=== PATIENT | female | born 1975 | race Caucasian/White ===

== ENCOUNTER 2017-11-09 08:05 | Observation (INO) | payer OTHER, SELFPAY ==
[2017-11-09] VITALS (12 sets, daily range): BP systolic 120–165; BP diastolic 74–109; PULSE 68–105; RESP 11–20; TEMP 36.4–36.8; O2SAT 96–100; BMI 29.0; BMI 27.8; BMI 27.9
--- NOTE | 2017-11-09 08:17 | EKG12_ITS ---
Test Reason : CHEST PAIN Blood Pressure : / mmHG Vent. Rate : 105 BPM Atrial Rate : 105 BPM P-R Int : 130 ms QRS Dur : 080 ms QT Int : 332 ms P-R-T Axes : 052 053 030 degrees QTc Int : 438 ms Sinus tachycardia Otherwise normal ECG Confirmed by HARRIET HARDEN MD ([id number]), city editor DIAMOND MEDINA ([id number] on 11/10/2017 11:34:14 AM Referred By: ZEE Confirmed By:HARRIET HADREN MD
--- NOTE | 2017-11-09 08:17 | RAD_ITS ---
STUDY: X-RAY CHEST REASON FOR EXAM: Female, 42 years old. Sudden onset of chest pain and chest heaviness. TECHNIQUE: Single AP portable view of the chest. COMPARISON: None. FINDINGS: EKG electrodes are seen. The lungs are clear and expanded. There is no demonstrated pleural abnormality. Normal size heart. Normal mediastinum and christine. Normal visualized pulmonary arteries. Normal visualized aortic arch and descending thoracic aorta. Normal visualized thoracic spine. Normal visualized ribs, clavicles, and shoulders. There is no demonstrated abnormality of the visualized soft tissue structures of the upper abdomen. RAD/Chest 1 View (Portable) IMPRESSION: Normal x-ray examination of the chest. Electronically Signed: Kobe Cedillo MD at 8:36 EDT Tel [phone], Service support ,
--- NOTE | 2017-11-09 08:22 | ED.VISSUMM ---
- ER Visit Summary Date of Service: 11/09/17 Chief Complaint: Chest pain History of Present Illness: The patient is a 42 F presenting with chest pain. States she started to not feel well around 2 AM. She had lightheadedness and dizziness. She states around 5 AM she started having chest pressure and diaphoresis. She was at work at the time. She states when she tried to walk around the chest pressure worsened and she became short of breath. She is a smoker, no other coronary artery disease risk factors. No PE/DVT risk factors. Physical Examination: Vitals are stable. Patient is afebrile. Alert no acute distress. HEENT exam is unremarkable. Neck is supple. Lungs are clear and equal bilaterally. Heart is regular and tachycardic Abdomen is soft nontender nondistended. Extremities are unremarkable. Skin is warm and dry. Remainder of exam is unremarkable. Emergency Department Course and Treatment: EKG is sinus tachycardia rate of 105 with no acute ischemic changes. She was given aspirin on arrival. She was given morphine, Zofran IV. Chest x-ray shows no acute process. CBC, chemistries unremarkable. Troponin is negative. D-dimer negative. On reevaluation, she is chest pain-free. Discussed with the hospitalist for observation. Disposition: Observation Impression: Chest pain This note was generated with [employer] dictation software. It may contain incorrect words, spelling, and punctuation that were not noted in review of the chart prior to signing ED Disposition - Plan for ED Patient: Chief Complaint: Chest Pain
[2017-11-09] MEDS: Aspirin 81 MG TAB.CHEW 324 MG PO (08:38)
[2017-11-09] MEDS: Morphine 4 MG/ML Syringe IV (08:38)
[2017-11-09] MEDS: Ondansetron 4 MG/2 ML Vial IV (08:38)
[2017-11-09 09:06] LABS: Absolute Lymphocyte Count 3.27 X10^3/ul (0.83-4.51); Absolute Neutrophil Count 5.4 X10^3/uL (2.0-7.7); Basophil# 0.04 X10^3/uL; Basophil% 0.4 % (0-1); Eosinophil# 0.29 X10^3/uL; Eosinophils% 2.9 % (0-5); Hematocrit 47.4 % (37-47); Lymphocyte # 3.27 X10^3/ul (4.0); Lymphocyte % 33.1 % (19-41); Mean Corp Hgb Conc 33.8 g/gl (32-36); Mean Corpuscular Hgb 30.8 pg (27.0-32.0); Mean Corpuscular Volume 91.3 fL (81-99); Monocyte# 0.79 X10^3/uL; Neutrophil # 5.41 X10^3/uL (2.7-7.7); Neutrophil % 54.9 % (47-70); POSITIVE COUNT NO; POSITIVE DIFFERENTIAL NO; POSITIVE MORPHOLOGY NO; Platelet Count 265 K/mm3 (150-450); RBC Distribution Width CV 13.1 % (11.6-14.6); RBC Distribution Width SD 43.5 fl (35.1-43.9); Red Blood Count 5.19 M/mm3 (4.2-5.4); White Blood Count 9.9 K/mm3 (4.4-11.0)
[2017-11-09 09:21] LABS: Anion Gap 11 (5-15); BUN 12 mg/dL (7-18); BUN/Creat Ratio 14.7 RATIO (10-20); Calcium,Total 9.2 mg/dL (8.5-10.1); Chloride 105 mmol/L (98-107); Creatinine, Serum 0.82 mg/dL (0.55-1.02); EST Glomerular Filtration Rate 81 mL/min (>60); Est Glom Filt Rate - Afr Amer 99 mL/min (>60); Estimated Creatinine Clearance 89.24 ml/min; Glucose 119 mg/dL (74-106); Potassium 3.7 mmol/L (3.5-5.1); Sodium Level 142 mmol/L (136-145)
[2017-11-09 09:23] LABS: D-Dimer Quantitative (DVT/PE) 0.34 FEU/ug/m (0.27-0.49)
--- NOTE | 2017-11-09 10:31 | NURSING ---
Pepper notified patient may transfer to PCU.
--- NOTE | 2017-11-09 10:35 | PCM.HP.STD ---
History of Present Illness Date of Admission: 11/09/17 Chief Complaint: Chest pain. The patient is a 42 year old F with no significant past medical history presented to the emergency room because of chest pain. This morning around 1:30 AM, patient went to work, started feeling nauseous and sweaty while standing and shortly after, she started having left-sided chest pain, described as chest discomfort, mild, 3-4 out of 10 in severity, associated with shortness of breath and palpitation as well as nausea and without aggravating or relieving factors. She denied syncope or presyncope. She mentioned that she works for [employer] and her job is very stressful and she thinks it is all because of stress and anxiety. She is a smoker. She denied personal history of hypertension, diabetes, hyperlipidemia or heart disease. No family history of premature CAD. Upon arrival to ER, patient was tachycardic, blood pressure slightly elevated, was afebrile and pulse ox was normal on room air. Her routine blood work was unremarkable. EKG revealed sinus tachycardia, otherwise normal. D-dimer is negative. Troponin is negative. Chest x-ray showed no acute findings. She is being admitted for chest pain for evaluation. 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 Denies: Edema, Heaviness, Light Headedness, Paroxysmal Noc. Dyspnea, Syncope Respiratory: Reports: Shortness of Breath. Denies: Cough, Pleuritic Pain, Sputum production, Wheezing Gastrointestinal: Reports: Nausea. Denies: Abdominal Pain, Constipation, Diarrhea, Vomiting Genitourinary: Denies: Dysuria, Frequency, Hematuria Musculoskeletal: Denies: Arm Pain, Back Pain, Foot Pain Skin: Denies: Dryness, Rash Neurological: Denies: Balance problems, Change in Speech, Slurred speech, Confusion, Headaches, Incoordination, Numbness, Tingling Psychiatric: Denies: Anxiety, Depression Endocrine: Denies: Change in Body Habitus, Polydipsia VTE Information - Inpt Only VTE Present on Admission: No VTE Mechan Device Prophylaxis: None VTE Pharm Prophylaxis ordered?: No - Physical Exam General: Alert, Oriented x3, Cooperative, No apparent distress HEENT: Atraumatic, PERRLA, EOMI, Normocephalic Oral: Moist Mucosa, No Gingival or Mucosal Lesions/ Ulcerations Neck: Supple, No JVD, Negative Carotid Bruits, Trachea Midline, Thyroid Normal Size and Texture Lungs: Clear to auscultation, Normal air movement, No rhonchi, No wheeze, No rales Cardiovascular: Regular rate, Regular Rhythm, Normal S1, Normal S2, No murmurs, PMI Normal Abdomen: Bowel Sounds Present, Soft, Non Tender, Non-Distended, No Hepato-splenomegaly Extremities: No clubbing, No cyanosis, No edema Skin: No rashes, No breakdown Lymphatic: No Cervical, Supraclavicular, or Inguinal Adenopathy Neurological: Cranial nerves II-XII grossly intact, Motor Exam 5/5 strength throughout Psych/Mental Status: Normal Affect, Appropriate, Alert and oriented to time, place, person, mood and affect Vital Signs Temp Pulse Resp BP Pulse Ox 97.9 F 88 19 H 125/96 H 100 11/09/17 08:06 11/09/17 10:30 11/09/17 10:30 11/09/17 10:30 11/09/17 10:30 Laboratory Tests 11/09/17 11/09/17 11/09/17 Range/Units 08:15 08:15 08:15 WBC 9.9 (4.4-11.0) K/mm3 RBC 5.19 (4.2-5.4) M/mm3 Hgb 16.0 H (12.0-15.0) g/dl Hct 47.4 H (37-47) % MCV 91.3 (81-99) fL MCH 30.8 (27.0-32.0) pg MCHC 33.8 (32-36) g/gl RDW 13.1 (11.6-14.6) % RDW Differential 43.5 (35.1-43.9) fl Plt Count 265 (150-450) K/mm3 MPV 10.0 (6.2-12.0) fl Immature Gran % (Auto) 0.700 (0.0-0.9) % Neut % (Auto) 54.9 (47-70) % Lymph % (Auto) 33.1 (19-41) % Kay % (Auto) 8.0 (0-10) % Eos % (Auto) 2.9 (0-5) % Baso % (Auto) 0.4 (0-1) % Absolute Neuts (auto) 5.4 (2.0-7.7) X10^3/uL Absolute Lymphs (auto) 3.27 (0.83-4.51) X10^3/ul Total Counted Not Reportable D-Dimer Quant (PE/DVT) 0.34 (0.27-0.49) FEU/ug/m Sodium 142 (136-145) mmol/L Potassium 3.7 (3.5-5.1) mmol/L Chloride 105 (98-107) mmol/L Carbon Dioxide 26.0 (21.0-32.0) mmol/L Anion Gap 11 (5-15) BUN 12 (7-18) mg/dL Creatinine 0.82 (0.55-1.02) mg/dL Estim Creat Clear Calc 89.24 ml/min Est GFR (MDRD) Af Amer 99 (>60) mL/min Est GFR (MDRD) Non-Af 81 (>60) mL/min BUN/Creatinine Ratio 14.7 (10-20) RATIO Glucose 119 H (74-106) mg/dL Calcium 9.2 (8.5-10.1) mg/dL Troponin I < 0.015 (<0.045) ng/mL Clinical Impression(s) from Imaging Studies Chest X-Ray 11/09/17 08:17 IMPRESSION: Normal x-ray examination of the chest. Electronically Signed: Kobe Cedillo MD at 8:36 EDT Tel [phone], Service support , Assessment/Plan This is a 42 years old female patient presented to the emergency room because of chest pain and she is being admitted for evaluation. #1 chest pain: On risk factor is smoking. No history of diabetes, hypertension, hyperlipidemia or CAD. No family history of premature CAD. EKG revealed sinus tachycardia, otherwise normal. Troponin is negative. Chest x-ray without acute findings. Her symptoms are probably due to stress and anxiety. Plan: Admit to PCU for observation, cardiac monitoring, serial cardiac enzymes, repeat EKG tomorrow morning, IV fluids, IV antiemetics, nitroglycerin as needed, nuclear stress test tomorrow morning if cardiac enzymes are negative. #2 DVT prophylaxis: Low risk patient, no prophylaxis indicated. This note was generated with [employer] dictation software. It may contain incorrect words, spelling, and punctuation that were not noted in checking the note before signing. Code Visit OBSV E&M: 44045 Initial observation care L3
--- NOTE | 2017-11-09 10:41 | HP.PCM_ITS ---
History of Present Illness Date of Admission: 11/09/17 Chief Complaint: Chest pain. The patient is a 42 year old F with no significant past medical history presented to the emergency room because of chest pain. This morning around 1: 30 AM, patient went to work, started feeling nauseous and sweaty while standing and shortly after, she started having left-sided chest pain, described as chest discomfort, mild, 3-4 out of 10 in severity, associated with shortness of breath and palpitation as well as nausea and without aggravating or relieving factors. She denied syncope or presyncope. She mentioned that she works for [employer] and her job is very stressful and she thinks it is all because of stress and anxiety. She is a smoker. She denied personal history of hypertension, diabetes, hyperlipidemia or heart disease. No family history of premature CAD. Upon arrival to ER, patient was tachycardic, blood pressure slightly elevated , was afebrile and pulse ox was normal on room air. Her routine blood work was unremarkable. EKG revealed sinus tachycardia, otherwise normal. D-dimer is negative. Troponin is negative. Chest x-ray showed no acute findings. She is being admitted for chest pain for evaluation. 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 Denies: Edema, Heaviness, Light Headedness, Paroxysmal Noc. Dyspnea, Syncope Respiratory: Reports: Shortness of Breath. Denies: Cough, Pleuritic Pain, Sputum production, Wheezing Gastrointestinal: Reports: Nausea. Denies: Abdominal Pain, Constipation, Diarrhea, Vomiting Genitourinary: Denies: Dysuria, Frequency, Hematuria Musculoskeletal: Denies: Arm Pain, Back Pain, Foot Pain Skin: Denies: Dryness, Rash Neurological: Denies: Balance problems, Change in Speech, Slurred speech, Confusion, Headaches, Incoordination, Numbness, Tingling Psychiatric: Denies: Anxiety, Depression Endocrine: Denies: Change in Body Habitus, Polydipsia VTE Information - Inpt Only VTE Present on Admission: No VTE Mechan Device Prophylaxis: None VTE Pharm Prophylaxis ordered?: No - Physical Exam General: Alert, Oriented x3, Cooperative, No apparent distress HEENT: Atraumatic, PERRLA, EOMI, Normocephalic Oral: Moist Mucosa, No Gingival or Mucosal Lesions/ Ulcerations Neck: Supple, No JVD, Negative Carotid Bruits, Trachea Midline, Thyroid Normal Size and Texture Lungs: Clear to auscultation, Normal air movement, No rhonchi, No wheeze, No rales Cardiovascular: Regular rate, Regular Rhythm, Normal S1, Normal S2, No murmurs, PMI Normal Abdomen: Bowel Sounds Present, Soft, Non Tender, Non-Distended, No Hepato- splenomegaly Extremities: No clubbing, No cyanosis, No edema Skin: No rashes, No breakdown Lymphatic: No Cervical, Supraclavicular, or Inguinal Adenopathy Neurological: Cranial nerves II-XII grossly intact, Motor Exam 5/5 strength throughout Psych/Mental Status: Normal Affect, Appropriate, Alert and oriented to time, place, person, mood and affect Vital Signs Temp Pulse Resp BP Pulse Ox 97.9 F 88 19 H 125/96 H 100 11/09/17 08:06 11/09/17 10:30 11/09/17 10:30 11/09/17 10:30 11/09/17 10:30 Laboratory Tests 3 11/09/17 11/09/17 11/09/17 Range/Units 08:15 08:15 08:15 WBC 9.9 (4.4-11.0) K/mm3 RBC 5.19 (4.2-5.4) M/mm3 Hgb 16.0 H (12.0-15.0) g/dl Hct 47.4 H (37-47) % MCV 91.3 (81-99) fL MCH 30.8 (27.0-32.0) pg MCHC 33.8 (32-36) g/gl RDW 13.1 (11.6-14.6) % RDW Differential 43.5 (35.1-43.9) fl Plt Count 265 (150-450) K/mm3 MPV 10.0 (6.2-12.0) fl Immature Gran % (Auto) 0.700 (0.0-0.9) % Neut % (Auto) 54.9 (47-70) % Lymph % (Auto) 33.1 (19-41) % [place] % (Auto) 8.0 (0-10) % Eos % (Auto) 2.9 (0-5) % Baso % (Auto) 0.4 (0-1) % Absolute Neuts (auto) 5.4 (2.0-7.7) X10^3/uL Absolute Lymphs (auto) 3.27 (0.83-4.51) X10^3/ul Total Counted Not Reportable D-Dimer Quant (PE/DVT) 0.34 (0.27-0.49) FEU/ug/m Sodium 142 (136-145) mmol/L Potassium 3.7 (3.5-5.1) mmol/L Chloride 105 (98-107) mmol/L Carbon Dioxide 26.0 (21.0-32.0) mmol/L Anion Gap 11 (5-15) BUN 12 (7-18) mg/dL Creatinine 0.82 (0.55-1.02) mg/dL Estim Creat Clear Calc 89.24 ml/min Est GFR (MDRD) Af Amer 99 (>60) mL/min Est GFR (MDRD) Non-Af 81 (>60) mL/min BUN/Creatinine Ratio 14.7 (10-20) RATIO Glucose 119 H (74-106) mg/dL Calcium 9.2 (8.5-10.1) mg/dL Troponin I < 0.015 (<0.045) ng/mL Clinical Impression(s) from Imaging Studies Chest X-Ray 11/09/17 08:17 IMPRESSION: Normal x-ray examination of the chest. Electronically Signed: Kobe Cedillo MD at 8:36 EDT Tel [phone], Service support , Assessment/Plan This is a 42 years old female patient presented to the emergency room because of chest pain and she is being admitted for evaluation. #1 chest pain: On risk factor is smoking. No history of diabetes, hypertension , hyperlipidemia or CAD. No family history of premature CAD. EKG revealed sinus tachycardia, otherwise normal. Troponin is negative. Chest x-ray without acute findings. Her symptoms are probably due to stress and anxiety. Plan: Admit to PCU for observation, cardiac monitoring, serial cardiac enzymes, repeat EKG tomorrow morning, IV fluids, IV antiemetics, nitroglycerin as needed , nuclear stress test tomorrow morning if cardiac enzymes are negative. #2 DVT prophylaxis: Low risk patient, no prophylaxis indicated. This note was generated with [employer] dictation software. It may contain incorrect words, spelling, and punctuation that were not noted in checking the note before signing. Code Visit OBSV E&M: 27724 Initial observation care L3
--- NOTE | 2017-11-09 10:52 | EKG12_ITS ---
Test Reason : PALPITATIONS Blood Pressure : / mmHG Vent. Rate : 061 BPM Atrial Rate : 061 BPM P-R Int : 136 ms QRS Dur : 092 ms QT Int : 410 ms P-R-T Axes : 050 064 052 degrees QTc Int : 412 ms Normal sinus rhythm Normal ECG When compared with ECG of 09-NOV-2017 10:59, MANUAL COMPARISON REQUIRED, DATA IS UNCONFIRMED Confirmed by FINA TINOCO, HARRIET ([id number]), scientific publications editor DIAMOND MEDINA ([id number]) on 11/12/2017 1:54:44 PM Referred By: SUZETTE Confirmed By:HARRIET HARDEN MD
[2017-11-09] MEDS: Acetaminophen 325 MG Tablet 650 MG PO ×2 (11:55→22:24)
[2017-11-09] MEDS: 0.9% NaCl Peripheral Flush Adult/Peds IV (11:55)
[2017-11-09] MEDS: 0.9% Normal Saline 1,000 ML 100 ML IV (11:55)
--- NOTE | 2017-11-09 15:25 | NURSING ---
MANAGER WEB came to this RN stating pt is having tenderness in her chest. When this RN went to check on pt, pt was sleeping. Will continue to monitor.
--- NOTE | 2017-11-09 23:30 | NURSING ---
Pt reports N/T to chest, fingers. Intermittent. Comes when she is just about to fall asleep. Pt states it feels like nerves. States she has never felt this way before. Pt reports some shortness of breath as well. Will obtain EKG.
--- NOTE | 2017-11-09 23:36 | EKG12_ITS ---
Test Reason : Blood Pressure : / mmHG Vent. Rate : 083 BPM Atrial Rate : 083 BPM P-R Int : 134 ms QRS Dur : 080 ms QT Int : 380 ms P-R-T Axes : 054 046 037 degrees QTc Int : 446 ms Normal sinus rhythm Normal ECG When compared with ECG of 09-NOV-2017 08:08, MANUAL COMPARISON REQUIRED, DATA IS UNCONFIRMED Confirmed by FINA TINOCO, HARRIET ([id number]), tape editor DIAMOND MEDINA ([id number]) on 11/12/2017 1:56:02 PM Referred By: BINU Confirmed By:HARRIET HARDEN MD
[2017-11-10] MEDS: Gabapentin 100 MG Capsule PO (00:45)
[2017-11-10 02:57] VITALS: PULSE 68
[2017-11-10 05:17] LABS: Absolute Lymphocyte Count 2.64 X10^3/ul (0.83-4.51); Absolute Neutrophil Count 6.1 X10^3/uL (2.0-7.7); Basophil# 0.04 X10^3/uL; Basophil% 0.4 % (0-1); Eosinophil# 0.38 X10^3/uL; Eosinophils% 3.9 % (0-5); Hematocrit 46.4 % (37-47); Hemoglobin 15.8 g/dl (12.0-15.0); Lymphocyte # 2.64 X10^3/ul (4.0); Lymphocyte % 26.8 % (19-41); Mean Corp Hgb Conc 34.1 g/gl (32-36); Mean Corpuscular Hgb 30.9 pg (27.0-32.0); Mean Corpuscular Volume 90.8 fL (81-99); Mean Platelet Vol. 9.7 fl (6.2-12.0); Monocyte# 0.69 X10^3/uL; Neutrophil # 6.06 X10^3/uL (2.7-7.7); Neutrophil % 61.5 % (47-70); Platelet Count 252 K/mm3 (150-450); RBC Distribution Width CV 13.3 % (11.6-14.6); RBC Distribution Width SD 44.1 fl (35.1-43.9); Red Blood Count 5.11 M/mm3 (4.2-5.4); White Blood Count 9.9 K/mm3 (4.4-11.0)
[2017-11-10 05:20] LABS: POSITIVE COUNT NO; POSITIVE DIFFERENTIAL NO; POSITIVE MORPHOLOGY NO
[2017-11-10 05:23] VITALS: BP 127/80; PULSE 63; RESP 12; TEMP 36.6; O2SAT 97
[2017-11-10 05:26] LABS: International Normalized Ratio 0.9; Prothrombin Time (Protime)PT. 11.8 SECONDS (11.7-14.9)
[2017-11-10 05:27] LABS: Partial Thromboplast Time 27.7 Seconds (24.1-36.2)
[2017-11-10 05:28] LABS: Anion Gap 5 (5-15); BUN 12 mg/dL (7-18); BUN/Creat Ratio 15.1 RATIO (10-20); Chloride 110 mmol/L (98-107); EST Glomerular Filtration Rate 84 mL/min (>60); Est Glom Filt Rate - Afr Amer 101 mL/min (>60); Estimated Creatinine Clearance 94.76 ml/min; Glucose 116 mg/dL (74-106); Potassium 4.1 mmol/L (3.5-5.1); Sodium Level 142 mmol/L (136-145)
[2017-11-10] MEDS: Aspirin E.C. 81 MG Tablet PO (05:36)
--- NOTE | 2017-11-10 05:55 | EKG12_ITS ---
Test Reason : MORNING EKG Blood Pressure : / mmHG Vent. Rate : 063 BPM Atrial Rate : 063 BPM P-R Int : 134 ms QRS Dur : 088 ms QT Int : 414 ms P-R-T Axes : 046 057 041 degrees QTc Int : 423 ms Normal sinus rhythm Normal ECG When compared with ECG of 09-NOV-2017 23:46, MANUAL COMPARISON REQUIRED, DATA IS UNCONFIRMED Confirmed by FINA TINOCO, HARRIET ([id number]), assistant film editor DIAMOND MEDINA ([id number]) on 11/12/2017 1:54:30 PM Referred By: SUZETTE Confirmed By:HARRIET HARDEN MD
[2017-11-10 07:35] VITALS: O2SAT 94
[2017-11-10 09:20] VITALS: PULSE 71
[2017-11-10 11:01] VITALS: PULSE 72
[2017-11-10 11:20] VITALS: BP 135/78; PULSE 76; RESP 16; TEMP 36.7; O2SAT 99
--- NOTE | 2017-11-10 11:38 | DCINST_ITS ---
You will use the following diet at home:: No restrictions Your food should be the consistency of: Regular Your liquids should be the consistency of: Regular/Thin Discharge Activity: Return to Normal Activity Allergies/Adverse Reactions: Allergies No Known Allergies Allergy (Verified 11/09/17 08:11) Medications to take at Discharge NK [NK] 11/09/17 Primary Care Physician: Care Physician,No Primary [Primary Care Provider] - Please follow up with your Primary Care Physician in: 1-2 weeks Test Results: Test results from this visit will be discussed in further detail at your follow- up appointment, if applicable. Proposed Discharge Date: 11/10/17
--- NOTE | 2017-11-10 12:49 | STRESSREP ---
Stress Test Report Exercise myocardial perfusion stress test. 42-year-old lady with a history of chest pain. Stress protocol: Resting EKG demonstrates sinus rhythm with a rate of 67 bpm normal intervals and noted resting blood pressure 732/84 mmHg. The patient exercised according to regular Hadley protocol for total duration of 9 minutes completing stage III of the Hadley protocol the maximum heart rate attained was 169 bpm which was 95% of maximum predicted heart rate the maximum workload attained was 10.1 metabolic equivalents. Patient maintained sinus rhythm throughout the recording. At rest there were no ST or T-wave changes noted suggest ischemia at peak exercise no ST or T-wave changes were noted suggest ischemia. The resting blood pressure is 132/84 with a peak blood pressure 180/90 mmHg. Rate pressure product was 29,800. Myocardial perfusion protocol. 11.8 mCi of technetium 99m sestamibi was injected at rest. The patient exercised according to regular Hadley protocol for 9 minutes at peak exercise 34.1 mCi of technetium 99m sestamibi was injected stress images were obtained stress and rest images were reconstructed and compared in the short axis vertical long and horizontal long axis. Gated images were also obtained. Perfusion SPECT analysis: Review of the stress images demonstrate normal uptake of tracer noted in all areas of the myocardium. The resting images similarly demonstrated normal uptake of tracer noted in all areas of the myocardium. No areas of reversibility are noted suggest ischemia and no previous infarct is noted. Gated SPECT analysis: The gated ejection fraction is noted to be 66%. Conclusion: Normal exercise myocardial perfusion stress test at a high workload. Excellent functional capacity. Preserved ejection fraction.
--- NOTE | 2017-11-10 13:18 | PCM.DC.SUM ---
Discharge Date and Diagnosis Date of Admission: 11/09/17 Date of Discharge: 11/10/17 - Primary Discharge Diagnosis Chest pain - musculoskeletal Nicotine abuse Hospital Course and Treatment Imaging Results: 11/10/17 05:55 Nuclear Stress Test - Treadmil [NM] Routine - Conclusion: Normal exercise myocardial perfusion stress test at a high workload. Excellent functional capacity. Preserved ejection fraction. RAD/Chest 1 View (Portable) IMPRESSION: Normal x-ray examination of the chest. Operations: None Procedures: Stress test Summary of Care Provided: Physical exam on day of discharge: General: Resting comfortably NAD Psych: A/Ox3 normal affect HEENT: PEARRLA AT NC Neck: Supple NT CV: RRR no m/t/r/g/h Resp: CTA Abd: [id number] Soft NT no guarding or rigidity Ext: DP2+= no edema Skin: W/D normal turgor Lymph/Heme: No active bleeding or adenopathy Neuro: CN2-12 intact Hospital course: The patient is a 42 year old F history of nicotine abuse who presented to the emergency room with chief complaint of chest pain. Patient started to experience chest pain at work stating she became nauseous, sweaty, with left-sided chest discomfort 3-4 out of 10 in severity with some shortness of breath and palpitations. She could not describe any aggravating or relieving factors. She felt that it may be from stress and anxiety. In the ER she had a negative EKG, negative troponin, negative chest x-ray. She was admitted for chest pain workup. She was placed in the PCU on started on telemetry. Troponin was cycled which remain negative. No events on telemetry. Repeat EKGs were negative. Following morning she underwent a stress test which was negative. Her pain was felt to be musculoskeletal and she was discharged home in stable condition and will need to follow-up with her PCP in 1-2 weeks. This patient was seen by Louis Xiao PA-C under the supervision of Doctor Shannon. [] Discharge Diet: Low fat/ Low Cholesterol, 2000 mg Sodium Diet Discharge Activity: Return to Normal Activity Home Medications: Medications to take at Discharge NK [NK] 11/09/17 Primary Care Physician: Care Physician,No Primary [Primary Care Provider] - Please follow up with your Primary Care Physician in: 1-2 weeks Disposition: Home Minutes spent on discharge:: 35 Patient Condition:: Stable Medical Necessity - Tobacco Use Smoking Status: Current every day smoker Tobacco Use: Cigarettes Meaningful Use Info Meaningful Use Diagnoses (Choose all that apply): None applicable
--- NOTE | 2017-11-10 13:23 | DS.PCM_ITS ---
Discharge Date and Diagnosis Date of Admission: 11/09/17 Date of Discharge: 11/10/17 - Primary Discharge Diagnosis Chest pain - musculoskeletal Nicotine abuse Hospital Course and Treatment Imaging Results: 11/10/17 05:55 Nuclear Stress Test - Treadmil [NM] Routine - Conclusion: Normal exercise myocardial perfusion stress test at a high workload. Excellent functional capacity. Preserved ejection fraction. RAD/Chest 1 View (Portable) IMPRESSION: Normal x-ray examination of the chest. Operations: None Procedures: Stress test Summary of Care Provided: Physical exam on day of discharge: General: Resting comfortably NAD Psych: A/Ox3 normal affect HEENT: PEARRLA AT NC Neck: Supple NT CV: RRR no m/t/r/g/h Resp: CTA Abd: [id number] Soft NT no guarding or rigidity Ext: DP2+= no edema Skin: W/D normal turgor Lymph/Heme: No active bleeding or adenopathy Neuro: CN2-12 intact Hospital course: The patient is a 42 year old F history of nicotine abuse who presented to the emergency room with chief complaint of chest pain. Patient started to experience chest pain at work stating she became nauseous, sweaty, with left- sided chest discomfort 3-4 out of 10 in severity with some shortness of breath and palpitations. She could not describe any aggravating or relieving factors. She felt that it may be from stress and anxiety. In the ER she had a negative EKG, negative troponin, negative chest x-ray. She was admitted for chest pain workup. She was placed in the PCU on started on telemetry. Troponin was cycled which remain negative. No events on telemetry. Repeat EKGs were negative. Following morning she underwent a stress test which was negative. Her pain was felt to be musculoskeletal and she was discharged home in stable condition and will need to follow-up with her PCP in 1-2 weeks. This patient was seen by Louis Xiao PA-C under the supervision of Doctor Shannon. [] Discharge Diet: Low fat/ Low Cholesterol, 2000 mg Sodium Diet Discharge Activity: Return to Normal Activity Home Medications: Medications to take at Discharge NK [NK] 11/09/17 Primary Care Physician: Care Physician,No Primary [Primary Care Provider] - Please follow up with your Primary Care Physician in: 1-2 weeks Disposition: Home Minutes spent on discharge:: 35 Patient Condition:: Stable Medical Necessity - Tobacco Use Smoking Status: Current every day smoker Tobacco Use: Cigarettes Meaningful Use Info Meaningful Use Diagnoses (Choose all that apply): None applicable
== END 2017-11-10 11:38 | disposition home or self-care (01) ==
LOC: ED 08:34 → PCU 10:36
PROVIDERS: Admitting Provider Hospitalist; Emergency Provider Emergency Medicine; Visit Provider Family Medicine
DX: R07.89 Other chest pain (principal); R42 Dizziness and giddiness; R06.02 Shortness of breath; R00.0 Tachycardia, unspecified; F17.210 Nicotine dependence, cigarettes, uncomplicated; R11.0 Nausea; R06.00 Dyspnea, unspecified; R00.2 Palpitations
CPT/HCPCS: 36415; 71045; 78452; 80048; 84484; 85025; 85379; 85610; 85730; 93005; 93017; 96361; 96374; 96375; 99218; 99285; 99406; A9500; J7030; A4216; G0378; J2405

== ENCOUNTER → 2021-09-22 | Outpatient (CLI) | payer OTHER, SELFPAY ==
[2021-09-22 15:16] LABS: Absolute Neutrophil Count 9.4 X10^3/uL (2.0-7.7); Basophil# 0.06 X10^3/uL; Basophil% 0.5 % (0-1); Eosinophil# 0.19 X10^3/uL; Eosinophils% 1.5 % (0-5); Hematocrit 48.8 % (37-47); Hemoglobin 16.2 g/dL (12.0-15.0); Lymphocyte % 19.4 % (19-41); Mean Corp Hgb Conc 33.2 g/dL (32-36); Mean Corpuscular Hgb 30.7 pg (27.0-32.0); Mean Corpuscular Volume 92.6 fL (81-99); Mean Platelet Vol. 10.3 fl (6.2-12.0); Monocyte# 0.64 X10^3/uL; NRBC Flagged by Analyzer 0 % (0-5); Neutrophil # 9.37 X10^3/uL (2.7-7.7); Neutrophil % 72.6 % (47-70); Platelet Count 271 K/mm3 (150-450); RBC Distribution Width CV 13.2 % (11.6-14.6); RBC Distribution Width SD 44.4 fl (35.1-43.9); Red Blood Count 5.27 M/mm3 (4.2-5.4); White Blood Count 12.9 K/mm3 (4.4-11.0)
[2021-09-22 15:36] LABS: AST(SGOT) 21 U/L (15-37); Alanine Aminotransfer ALT/SGPT 44 U/L (13-56); Albumin, Serum 3.6 g/dL (3.2-5.0); Alkaline Phosphatase 100 U/L (45-117); Globulin 3.9 g/dL (2.2-4.2); Protein, Total 7.5 g/dL (6.4-8.2)
[2021-09-23 09:22] LABS: HIV - WCH Non-Reactive (Nonreactive); Hepatitis B Surface Antibody Non-Reactive; Hepatitis B Surface Antigen Non-Reactive (Nonreactive); Hepatitis C Antibody Non-Reactive (Nonreactive)
[2021-09-24 19:07] LABS: QNTFERON TB Mitogen Value > 10.00 IU/mL (.); QNTFERON TB Nil Value 0 IU/mL (.); QNTFERON TB1+ Ag Value 0 IU/mL (.); QNTFERON TB2+ Ag Value 0 IU/mL (.)
[2021-09-24 19:23] LABS: Hepatitis B Core Ab Total Negative (Negative); QNTIFERON TB Positive Criteria Negative (Negative)
== END | disposition home or self-care (01) ==
LOC: MTLAB 11:58
PROVIDERS: PCP Internal Medicine; Referring Provider Dermatology; Visit Provider Dermatology
DX: Z79.899 Other long term (current) drug therapy (principal); L40.3 Pustulosis palmaris et plantaris; D23.71 Other benign neoplasm of skin of right lower limb, including hip
CPT/HCPCS: 36415; 80076; 85025; 86480; 86703; 86704; 86706; 86803; 87340